=== PATIENT | male | born 1975 | race Caucasian/White ===

== ENCOUNTER → 2019-08-22 | Outpatient (CLI) | payer BC ==
--- NOTE | 2019-08-22 16:30 | MR ---
EXAMINATION TYPE: MR brain and iac wo/w con DATE OF EXAM: 08/22/2019 COMPARISON: NONE HISTORY: Temporal headaches TECHNIQUE: Multiplanar, multisequence images of the brain and brainstem is performed without and with IV contras t, utilizing 13 mL intravenous Gadavist . FINDINGS: Diffusion weighted images demonstrate no evidence of a recent infarct or other diffusion ab normality. There is an old lacunar injury of the caudate head. There is no extra-axial fluid collect ion. There are few scattered T2/FLAIR hyperintense foci in the subcortical and periventricular white matter, predominantly in the frontal lobes. These measure up to 4 mm. The ventricular system and cist ernal spaces are normal in size and appearance. The brain volume is age appropriate. Midline structures demonstrate normal morphology. The craniocervical junction appears within normal limits. Post contrast images demonstrate no abnormal enhancement. The dural venous sinuses appear pa tent. Scant mucosal thickening is seen in the ethmoid sinuses. The remaining visualized sinuses are c lear and the globes are intact. There is tortuosity of the cavernous portions of the internal carotid atherosclerosis is also seen within the cavernous segments. No abnormal enhancement of 7th or 8th cranial nerves. No evidence of acoustic schwannoma. No cerebell ar pontine angle mass. IMPRESSION: 1. Mild burden nonspecific white matter change for age given the frontal lobe predominant distributio n sequela of chronic migraines is a primary consideration. Chronic microangiopathy is another possibi lity. Other etiologies are possible but less likely. Old lacunar injury is also seen of the caudate n ucleus on the right. 2. No acute infarct, midline shift or mass effect. No abnormal intracranial enhancement. No MR eviden ce of acoustic schwannoma or abnormal seventh/8th cranial nerve enhancement. 3. Minimal mucosal thickening in the ethmoid sinuses.
== END | disposition home or self-care (01) ==
LOC: RADMRIMAIN 13:47
PROVIDERS: ATTEND Internal Medicine
DX: G43.909 Migraine, unspecified, not intractable, without status migrainosus (principal); R90.89 Other abnormal findings on diagnostic imaging of central nervous system; I63.9 Cerebral infarction, unspecified
CPT/HCPCS: 70553; A9585

== ENCOUNTER → 2019-12-29 | Outpatient (CLI) | payer BC ==
--- NOTE | 2019-12-29 23:18 | CT ---
EXAMINATION TYPE: CT abdomen wo/w con DATE OF EXAM: 12/29/2019 COMPARISON: None. HISTORY: Pt states renal mass Rt side found during MRI. Not c/o any sx. CT DLP: 3228.9 mGycm, Automated Exposure Control for Dose Reduction was Utilized. CONTRAST: CT scan of the abdomen is performed with oral and with IV Contrast, patient injected with 100 mL of I sovue 300. FINDINGS: LUNG BASES: No significant abnormality is appreciated. LIVER/GB: Noncontrast images show liver hypodense consistent with diffuse fatty infiltration. PANCREAS: No significant abnormality is seen. SPLEEN: No significant abnormality is seen. ADRENALS: No significant abnormality is seen. KIDNEYS: Noncontrast images show no renal calculi bilaterally. There is abnormal anterior axis or til marino positioning to the right kidney. Postcontrast images show symmetric cortical medullary uptake and excretion without hydronephrosis seen bilaterally. No concerning solid or cystic renal masses presen t in either kidney. Suspect abnormal medial positioning the lower pole of the right kidney and axis m ay have mimicked lesion on outside lumbar spine MRI BOWEL: Oral contrast only reaches jejunal loops in the left abdomen. No suspicious small or large bow el dilatation. LYMPH NODES: No greater than 1cm abdominal lymph nodes are appreciated. OSSEOUS STRUCTURES: No significant abnormality is seen. OTHER: No significant additional abnormality is seen. IMPRESSION: No suspicious renal solid or cystic masses. Abnormal positioning and axis of right kidne y is suspected to have minimal mass on outside lumbar spine MRI, correlate clinically.
== END | disposition home or self-care (01) ==
LOC: RADCTMAIN 17:04
PROVIDERS: ATTEND Internal Medicine
DX: N28.89 Other specified disorders of kidney and ureter (principal)
CPT/HCPCS: 74170; Q9967

== ENCOUNTER 2023-04-04 18:52 | Emergency (ER) | payer BC ==
[2023-04-04 19:27] VITALS: RESP 18
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
[2023-04-04 21:25] LABS: Appearance,Urine Clear (Clear); Bilirubin,Urine Negative (Negative); Blood,Urine Negative (Negative); Color,Urine Light Yellow; Glucose,Urine (UA) 4+ (Negative); Ketones,Urine Trace (Negative); Leukocyte Esterase,Urine Negative (Negative); Nitrite,Urine Negative (Negative); PH, Urine 5.5 (5.0-8.0); Protein,Urine Negative (Negative); Specific Gravity,Urine 1.043 (1.001-1.035); Urobilinogen,Urine <2.0 mg/dL (<2.0)
[2023-04-04 21:38] LABS: Basophils % (A) 1 %; Eosinophils # (A) 0.1 k/uL (0-0.7); Eosinophils % (A) 2 %; HCT 45.6 % (39.0-53.0); HGB 15.3 gm/dL (13.0-17.5); Lymphocytes # (A) 2.3 k/uL (1.0-4.8); Lymphocytes % (A) 42 %; MCH 29.6 pg (25.0-35.0); MCHC 33.6 g/dL (31.0-37.0); Mean Platelet Volume 7.2; Monocytes # (A) 0.3 k/uL (0-1.0); Monocytes % (A) 5 %; Neutrophils # (A) 2.8 k/uL (1.3-7.7); Neutrophils % (A) 50 %; Platelet Count 227 k/uL (150-450); RBC 5.18 m/uL (4.30-5.90); RDW 13.6 % (11.5-15.5); WBC 5.6 k/uL (3.8-10.6)
[2023-04-04 22:12] LABS: ALT 36 U/L (4-49); AST 32 U/L (17-59); African American GFR (CKD) >90 (>60 ml/min/1.73 sqM); Albumin 4.8 g/dL (3.5-5.0); Alkaline Phosphatase 116 U/L (38-126); Anion Gap 10 mmol/L; Blood Urea Nitrogen 20 mg/dL (9-20); C Reactive Protein 0.8 mg/dL (<1.0); Calcium 9.7 mg/dL (8.4-10.2); Carbon Dioxide 24 mmol/L (22-30); Chloride 103 mmol/L (98-107); Glucose 175 mg/dL (74-99); Non-African American GFR(CKD) 87 (>60 ml/min/1.73 sqM); Sodium 137 mmol/L (137-145); Total Bilirubin 0.4 mg/dL (0.2-1.3); Total Protein 7.7 g/dL (6.3-8.2)
[2023-04-04] MEDS ORDERED: LIDOCAINE 2% GLYDO JELLY 11 ML APPL MISCELLANE ONE (22:51)
[2023-04-04] MEDS ORDERED: BACITRACIN OINT 1 EACH PACKET TOPICAL ONE (23:02)
[2023-04-05 00:09] VITALS: BP 129/77; PULSE 82; TEMP 98.5
== END 2023-04-05 00:09 | disposition home or self-care (01) ==
LOC: EC 18:52
DX: S81.801A Unspecified open wound, right lower leg, initial encounter (principal); J45.909 Unspecified asthma, uncomplicated; Z86.59 Personal history of other mental and behavioral disorders; X58.XXXA Exposure to other specified factors, initial encounter
CPT/HCPCS: 36415; 80053; 81003; 85025; 86140; 99283